=== PATIENT | female | born 1985 | race Caucasian/White ===

== ENCOUNTER 2016-04-08 12:17 | Emergency (ER) | payer MEDICAID ==
[~2016-04-08] VITALS: Ht 165.1 cm; Wt 70.5 kg
[~2016-04-08 12:17] MED LIST: HYDR-3498 PO; OMEP20CA16 PO; ONDA-43 PO; SENN-53 PO
[2016-04-08 12:25] VITALS: Ht 165.1 cm; Wt 70.5 kg
[2016-04-08 13:35] LABS: BASOPHILS % 0.2 % (0.0-2.0); EOSINOPHILS # 0.1 10^3/ul (0.0-0.5); EOSINOPHILS % 0.6 % (0.0-7.0); HEMATOCRIT 38.8 % (37.0-47.0); HEMOGLOBIN 12.9 g/dl (12.0-16.0); LYMPHOCYTES # 2.7 10^3/ul (0.8-2.9); LYMPHOCYTES % 30.3 % (15.0-51.0); MEAN CORPUSCULAR HEMOGLOBIN 28.7 pg (29.0-33.0); MEAN CORPUSCULAR HGB CONC 33.3 g/dl (32.0-37.0); MEAN CORPUSCULAR VOLUME 86.3 fl (82.0-101.0); MEAN PLATELET VOLUME 8.9 fl (7.4-10.4); MONOCYTE # 0.3 10^3/ul (0.3-0.9); MONOCYTES % 3.7 % (0.0-11.0); NEUTROPHIL # 5.7 10^3/ul (1.6-7.5); NEUTROPHILS % 65.2 % (39.0-77.0); PLATELET COUNT 231 10^3/UL (140-440); RED BLOOD COUNT 4.49 10^6/ul (4.20-5.40); UNCORRECTED WBC 8.8 10^3/ul (4.8-10.8); WHITE BLOOD COUNT 8.8 10^3/ul (4.8-10.8)
[2016-04-08 13:41] LABS: CONDITION 1
[2016-04-08 13:42] LABS: ALBUMIN 4.1 g/dl (3.3-4.9)
[2016-04-08 13:43] LABS: INR 1.01; POTASSIUM 3.7 mmol/L (3.5-5.1); PROTIME 13.3 Sec (12.2-14.2)
[2016-04-08 13:45] LABS: BILIRUBIN,INDIRECT 0.9 mg/dl (0-1.1); BILIRUBIN,TOTAL 0.9 mg/dl (0.2-1.3); CREATININE 0.72 mg/dl (0.44-1.00)
[2016-04-08 13:46] LABS: ALBUMIN/GLOBULIN RATIO 1.07; CALCIUM 9.3 mg/dl (8.4-10.2); D-DIMER 275.54 ng/ml (<460); TOTAL PROTEIN 7.9 g/dl (6.1-8.1)
[2016-04-08] MEDS ORDERED: KETOROLAC 30 MG INJ IV STA (14:12)
[2016-04-08] MEDS ORDERED: KETOROLAC 30 MG INJ ONE (14:31)
[2016-04-08] MEDS ORDERED: IBUP-1542 PO (14:46)
[2016-04-08] MEDS ORDERED: LORA-441 PO (14:46)
[2016-04-08] MEDS ORDERED: ULT50 PO (14:46)
--- NOTE | 2016-04-08 14:51 | ERD ---
ER Documentation Chief Complaint Date/Time DATE: 04/08/16 TIME: 14:48 Chief Complaint RT SIDED CHEST PAIN X1 WEEK HPI This 30-year-old female complains of right-sided chest wall pain for last week. Is worse with bending over she feels radiating causing a bitemporal headache possible sensation of anxiety as well. She has a history of anxiety but she feels is not related. She possibly felt like she was going to pass out due to the pain last week but did not pass out. She denies any fevers, cough, vomiting , abdominal pain, urinary complaints. She denies any leg swelling. The pain is sometimes reproducible or positional and sometimes not. The pain is sharp and feels like electrical shocks according to the patient. ROS All systems reviewed and are negative except as per history of present illness. Medications Home Meds Active Scripts Lorazepam* (Ativan*) 0.5 Mg Tablet, 0.5 MG PO Q8, #10 TAB Prov:JHOAN NORTON MD 04/08/16 Tramadol HCl (Tramadol HCl) 50 Mg Tablet, 50 MG PO Q4 Y for PAIN, #20 TAB Prov:JHOAN NORTON MD 04/08/16 Ibuprofen* (Motrin*) 600 Mg Tab, 600 MG PO Q6, #30 TAB Prov:JHOAN NORTON MD 04/08/16 Sennosides* (Senna Lax*) 8.6 Mg Tablet, 2 TAB PO BID, #30 TAB Prov:NGA CENTENO MD 04/13/15 Ondansetron Hcl* (Zofran*) 4 Mg Tab, 4 MG PO Q6H Y for NAUSEA AND OR VOMITING, # 25 TAB Prov:NGA CENTENO MD 04/13/15 Omeprazole* (Omeprazole*) 20 Mg Capsule.dr, 20 MG PO DAILY, #30 CAP Prov:NGA CENTENO MD 04/13/15 Hydrocodone Bit-Acetaminophen* ([place]*) 5-325 Mg Tab, 1 TAB PO Q6H Y for PAIN, # 24 TAB Prov:NGA CENTENO MD 04/13/15 Allergies Allergies: Coded Allergies: No Known Drug Allergies (Verified Allergy, Unknown, 04/04/15) PMhx/Soc History of Surgery: No Anesthesia Reaction: No Hx Neurological Disorder: Yes (Frequent headaches) Hx Respiratory Disorders: No Hx Cardiac Disorders: No Hx Psychiatric Problems: No Hx Miscellaneous Medical Probl: No Hx Alcohol Use: No Hx Substance Use: No Hx Tobacco Use: No Physical Exam Vitals Vital Signs Date Time Temp Pulse Resp B/P Pulse Ox O2 Delivery O2 Flow Rate FiO2 04/08/16 12:25 98.4 97 16 129/72 98 Physical Exam Const: [] Alert, [id number]-[id number]. No apparent distress. Head: Atraumatic Eyes: Normal Conjunctiva ENT: Normal External Ears, Nose and Mouth. Neck: Full range of motion..~ No meningismus. Resp: Clear to auscultation bilaterally Cardio: Regular rate and rhythm, no murmurs. There is some possibly some mild reproducible right-sided chest wall tenderness at the costochondral junction. There is no skin changes. Abd: Soft, non tender, non distended. Normal bowel sounds Skin: No petechiae or rashes Back: No midline or flank tenderness Ext: No cyanosis, or edema Neur: Awake and alert Psych: Normal Mood and Affect Result Diagram: 04/08/16 1310 04/08/16 1310 Results 24 hrs Laboratory Tests Test 04/08/16 13:10 Activated Partial Thromboplast Time 26.0Sec Alanine Aminotransferase (ALT/SGPT) 24IU/L Albumin 4.1g/dl Albumin/Globulin Ratio 1.07 Alkaline Phosphatase 75IU/L Anion Gap 17 Aspartate Amino Transf (AST/SGOT) 14IU/L Basophils # 0.010^3/ul Basophils % 0.2% Blood Morphology Comment Blood Urea Nitrogen 11mg/dl Calcium Level 9.3mg/dl Carbon Dioxide Level 26mmol/L Chloride Level 106mmol/L Creatinine 0.72mg/dl D-Dimer 275.54ng/ml D-Dimer Comment Direct Bilirubin 0.00mg/dl Eosinophils # 0.110^3/ul Eosinophils % 0.6% Globulin 3.80g/dl Glucose Level 89mg/dl Hematocrit 38.8% Hemoglobin 12.9g/dl INR International Normalized Ratio 1.01 Indirect Bilirubin 0.9mg/dl Lymphocytes # 2.710^3/ul Lymphocytes % 30.3% Mean Corpuscular Hemoglobin 28.7pg Mean Corpuscular Hemoglobin Concent 33.3g/dl Mean Corpuscular Volume 86.3fl Mean Platelet Volume 8.9fl Monocytes # 0.310^3/ul Monocytes % 3.7% Neutrophils # 5.710^3/ul Neutrophils % 65.2% Nucleated Red Blood Cells # 0.010^3/ul Nucleated Red Blood Cells % 0.0/100WBC Platelet Count 23205^3/UL Potassium Level 3.7mmol/L Prothrombin Time 13.3Sec Prothrombin Time Ratio 1.0 Red Blood Count 4.4910^6/ul Red Cell Distribution Width 14.0% Sodium Level 145mmol/L Total Bilirubin 0.9mg/dl Total Protein 7.9g/dl White Blood Count 8.810^3/ul Current Medications Medications (Trade) Dose Ordered Sig/Vamsi Route PRN Reason Start Time Stop Time Status Last Admin Dose Admin Ketorolac Tromethamine (Toradol) 30 mg ONCE STAT IV 04/08/16 14:12 04/08/16 14:30 DC 04/08/16 14:34 Procedures/MDM Chest X-ray 1V Interpreted by me: Soft Tissue: No acute abnormalities Bones: No acute abnormalities Mediastinum/Cardiac Silhouette/Lungs: [No acute abnormalities]. Impression- normal 1 view chest x-ray EKG: Rate/Rhythm: [Normal Sinus Rhythm] rate equals 105 QRS, ST, T-waves: [No changes consistent w/ acute ischemia] Impression: [No evidence of ischemia or arrhythmia]. Impression-slight sinus tachycardia otherwise no acute findings on EKG. Patient presents with intermittent chest wall pain of uncertain etiology. She does have some slight tachycardia and possible near syncope last week. D-dimer is negative and CBC as well as CMP. Patient was given Toradol 30 mg IV. Patient appears to have an anxiety component to some of her symptoms well. She will treated with tramadol, ibuprofen and Ativan for what appears to be costochondritis. Signs and symptoms are not consistent with acute coronary syndrome, pneumonia, respiratory distress, acute abdomen, additional causes of chest wall pain. Patient is advised to follow-up with primary doctor this week return to the ER for any worsening symptoms. Departure Diagnosis: Primary Impression: Chest pain Chest pain type: unspecified Qualified Code: R07.9 - Chest pain, unspecified type Condition: Stable Patient Instructions: Chest Pain, Uncertain Cause, Chest Wall Pain, Costochondritis Additional Instructions: All examinations normal today. Likely costochondritis. Recheck with primary care doctor or for new or worsening symptoms. TEEHEE,JHOAN N. MD Apr 08, 2016 14:51
[2016-04-08 15:08] VITALS: BP 108/56; PULSE 71; RESP 18; TEMP 98.4
--- NOTE | 2016-04-08 19:19 | RADRPT ---
PROCEDURE: XR Chest. CLINICAL INDICATION: Chest pain TECHNIQUE: Single frontal view of the chest. COMPARISON: 03/04/2015 chest radiograph. FINDINGS: The lungs are clear. No pleural effusion or pneumothorax. The cardiomediastinal silhouette is unremarkable. No acute osseous abnormalities. Mild S-shaped scoliosis of the thoracolumbar spine is unchanged. IMPRESSION: No acute abnormalities. Unchanged from the previous examination. RPTAT: AADD .Baldemar Pelayo MD, MD Date Time Electronically viewed and signed by .Baldemar Pelayo MD, MD on 04/08/2016 13:51 .B/
== END 2016-04-08 15:10 | disposition home or self-care (01) ==
LOC: FTE 12:17
DX: R07.89 Other chest pain (principal)
CPT/HCPCS: 36415; 71010; 80053; 85025; 85378; 85610; 85730; 93005; 96374; Z7502; J1885

== ENCOUNTER 2016-11-07 19:55 | Emergency (ER) | payer MEDICAID ==
[~2016-11-07] VITALS: Wt 69.5 kg
[~2016-11-07 19:55] MED LIST changes: +IBUP-1542 PO; +LORA-441 PO; +TRAM50TA2 PO
[2016-11-08] MEDS ORDERED: IBUP200C PO (01:56)
[2016-11-08] MEDS ORDERED: SOD CHLORIDE 0.9% 100 ML ONE (03:45)
[2016-11-08] MEDS ORDERED: IOHEXOL 300MG/ML 150 ML BTL ONE (03:45)
--- NOTE | 2016-11-08 05:33 | ERD ---
ER Documentation Chief Complaint Date/Time DATE: 11/08/16 TIME: 05:33 Chief Complaint Back pain and chest pain with lymph node at thoracic area HPI 31-year-old female presenting with multiple complaints. She has had intermittent chest pains, neck pains, paresthesias and dizziness since February 2016. She has been to the ER multiple times for these complaints. She has been in the process of getting worked up by her primary care physician at [facility]. 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 It also showed some degenerative C5-C6 changes. CT scan of the neck was recommended by the radiologist on the report that the patient has with her. So her primary care doctor told her today to go to the ER for a CT scan. Patient states that she has no new symptoms today. ROS All systems reviewed and are negative except as per history of present illness. Medications Home Meds Reported Medications Ibuprofen* (Ibuprofen*) 200 Mg Capsule, 200 MG PO Q6, CAP 11/08/16 Discontinued Scripts Lorazepam* (Ativan*) 0.5 Mg Tablet, 0.5 MG PO Q8, #10 TAB Prov:JHOAN NORTON MD 04/08/16 Tramadol HCl (Tramadol HCl) 50 Mg Tablet, 50 MG PO Q4 Y for PAIN, #20 TAB Prov:JHOAN NORTON MD 04/08/16 Ibuprofen* (Motrin*) 600 Mg Tab, 600 MG PO Q6, #30 TAB Prov:JHOAN NORTON MD 04/08/16 Sennosides* (Senna Lax*) 8.6 Mg Tablet, 2 TAB PO BID, #30 TAB Prov:NGA CENTENO MD 04/13/15 Ondansetron Hcl* (Zofran*) 4 Mg Tab, 4 MG PO Q6H Y for NAUSEA AND OR VOMITING, # 25 TAB Prov:NGA CENTENO MD 04/13/15 Omeprazole* (Omeprazole*) 20 Mg Capsule.dr, 20 MG PO DAILY, #30 CAP Prov:NGA CENTENO MD 04/13/15 Hydrocodone Bit-Acetaminophen* ([place]*) 5-325 Mg Tab, 1 TAB PO Q6H Y for PAIN, # 24 TAB Prov:NGA CENTENO MD 04/13/15 Allergies Allergies: Coded Allergies: No Known Drug Allergies (Unverified Allergy, Unknown, 11/08/16) PMhx/Soc History of Surgery: No Anesthesia Reaction: No Hx Neurological Disorder: Yes (Frequent headaches) Hx Respiratory Disorders: No Hx Cardiac Disorders: No Hx Psychiatric Problems: No Hx Miscellaneous Medical Probl: No Hx Alcohol Use: No Hx Substance Use: No Hx Tobacco Use: No Smoking Status: Never smoker FmHx Family History: No diabetes Physical Exam Vitals Vital Signs Date Time Temp Pulse Resp B/P Pulse Ox O2 Delivery O2 Flow Rate FiO2 11/07/16 20:18 100.0 85 20 111/63 99 Physical Exam Const: Well-appearing, comfortably laying in bed, no apparent distress Head: Atraumatic Eyes: Normal Conjunctiva, PERRLA, EOMI ENT: Normal External Ears, Nose and Mouth. Neck: Full range of motion..~ No meningismus. No C-spine tenderness palpation Resp: Clear to auscultation bilaterally Cardio: Regular rate and rhythm, no murmurs Abd: Soft, non tender, non distended. Normal bowel sounds Skin: No petechiae or rashes Back: No midline or flank tenderness Ext: No cyanosis, or edema Neur: Awake and alert and oriented 3, cranial nerves intact, strength and sensations intact all 4 extremities, normal gait Psych: Normal Mood and Affect Results 24 hrs Current Medications Medications (Trade) Dose Ordered Sig/Vamsi Route PRN Reason Start Time Stop Time Status Last Admin Dose Admin Sodium Chloride (NS) 100 ml @ ud STK-MED ONCE .ROUTE 11/08/16 03:45 11/08/16 03:46 DC 11/08/16 04:09 Iohexol (Omnipaque 300mg/ ml) 150 ml STK-MED ONCE .ROUTE 11/08/16 03:45 11/08/16 03:46 DC 11/08/16 04:09 Procedures/MDM I had an extensive conversation with the patient about the risks of radiation from the CT scan and the limited benefits from the CT scan. I do not think that the CT of the neck is going to be helpful in diagnosing her various chronic symptoms. However after extensive discussion, the patient was very insistent on getting the CT scan because her doctor wanted that. I did offer her the CT scan but do not think we will find much. After the CT scan was done , we were awaiting the radiology report. The patient stated she has to go and requested to be discharged. She will return later for the results of the CT scan. Patient is hemodynamically stable and well-appearing and may go home at this time. Pending studies: CT neck and C-spine Departure Diagnosis: Primary Impression: Chest pain Chest pain type: unspecified Qualified Code: R07.9 - Chest pain, unspecified type Additional Impression: Neck pain Condition: Stable EKLUPE CHANDLER MD Nov 08, 2016 05:33
--- NOTE | 2016-11-08 05:33 | RADRPT ---
PROCEDURE: CT CERVICAL SPINE WITHOUT CONTRAST CLINICAL INDICATION: 31-year-old female with neck pain and paresthesias. TECHNIQUE: The study was performed utilizing a GE [employer] VCT 64-slice CT scanner. Direct axia l sections were obtained through the cervical spine. Coronal and sagittal re-formations were obtain ed. One or more of the following dose reduction techniques were utilized: automated exposure control , adjustment of the mA and/or kV according to patient's size or use of iterative reconstruction tech nique. The images were viewed on a PACS workstation. CTD/vol = 22.3 mGy; Total Exam DLP = 569.7 mGy -cm. COMPARISON: None. FINDINGS: The patients head/neck is mildly tilted to the left. There is mild reversal of the normal cervical lordosis. Otherwise, the cervical vertebral bodies have normal heights and anatomic alignment. Ther e is no evidence for acute cervical spine fracture or subluxation. At C5-6 there is mild disk space narrowing, right central posterior disk-osteophyte complex projecting 3 mm beyond the posterior chacho in with bilateral uncovertebral degenerative changes resulting in mild right foraminal stenosis. At C6-7 there is a left central posterior disk-osteophyte complex projecting approximately 4 mm beyond the posterior margin with minimal bilateral uncovertebral degenerative changes resulting in mild le ft foraminal stenosis. IMPRESSION: 1. Mild reversal of the normal cervical lordosis. 2. No CT evidence for acute cervical spine fracture. 3. Mild cervical spondylosis at C5-6 and C6-7. .Meir Grady MD, MD Date Time Electronically viewed and signed by .Meir Grady MD, on 11/08/2016 05:32 .M/
--- NOTE | 2016-11-08 05:39 | RADRPT ---
PROCEDURE: CT NECK WITH CONTRAST CLINICAL INDICATION: 31-year-old female with neck pain. TECHNIQUE: The study was performed utilizing a GE [employer] VCT 64-slice CT scanner. Direct axial sections were obtained through the neck with the use of 100 cc of Omnipaque 300 nonionic intravenou s contrast material. One or more of the following dose reduction techniques were utilized: automated exposure control, adjustment of the mA and/or kV according to patient's size or use of iterative re construction technique. The images were reviewed on a PACS workstation. Total Exam CTD/vol = 8.8 mG y; Total Exam DLP = 252.7 mGy-cm. COMPARISON: CT cervical spine obtained concurrently. FINDINGS: The paranasal sinuses and mastoid air cells are without significant soft tissue. No air-fluid level s are noted. The parotid and submandibular glands are without evidence for abnormal density or cont rast enhancement. Shotty lymph nodes are identified within the upper neck. These are nonpathologic b y size criteria. The nasopharynx, oropharynx, hypopharynx and larynx is without abnormality. The thy roid gland is without areas of abnormal density or contrast enhancement. The lung apices are unremar kable. The vascular structures are intact. IMPRESSION: Unremarkable CT scan of the neck. .Meir Grady MD, MD Date Time Electronically viewed and signed by .Meir Grady MD, on 11/08/2016 05:38 .M/
[2016-11-08 05:41] VITALS: BP 115/72; PULSE 78; RESP 20
== END 2016-11-08 05:42 | disposition home or self-care (01) ==
LOC: E/R 19:55
DX: R07.9 Chest pain, unspecified (principal); M54.2 Cervicalgia
CPT/HCPCS: 70491; 72125; Q9967; Z7502; Z7610